=== PATIENT | female | born 1980 | race Native Hawaiian/Other Pacific Islander ===

== ENCOUNTER 2016-06-19 23:13 | Emergency (ER) | payer SELFPAY ==
[2016-06-19 23:26] VITALS: BP 121/80
[2016-06-19] MEDS ORDERED: TYLENOL ONE (23:31)
[2016-06-19] MEDS ORDERED: TYLENOL PO ONE (23:36)
[2016-06-20 00:28] LABS: Basophils % (Auto) 0.2 % (0.0-1.8); Hemoglobin 13.2 gm/dl (10.1-14.3); Mean Corpuscular HGB Conc 34 % (30-34); Mean Corpuscular Hemoglobin 30 pg (28-32); Mean Corpuscular Volume 88 fl (79-97); Platelet Count 393 K/mm3 (140-440); Red Blood Count 4.45 M/mm3 (3.65-5.03); Red Cell Distribution Width 12.8 % (13.2-15.2); White Blood Count 12.4 K/mm3 (4.5-11.0)
[2016-06-20 00:50] LABS: Alanine Aminotransferase 15 units/L (7-56); Alkaline Phosphatase 59 units/L (35-129); Bilirubin,Total 0.6 mg/dL (0.1-1.2); Blood Urea Nitrogen 11 mg/dL (7-17); Carbon Dioxide 21 mmol/L (22-30); Chloride 95.9 mmol/L (98-107); Glucose 149 mg/dL (65-100); Lipase 16 units/L (13-60); Potassium 3.6 mmol/L (3.6-5.0); Sodium 135 mmol/L (137-145); Total Protein 8.2 g/dL (6.3-8.2)
[2016-06-20 00:56] LABS: Anion Gap 22 mmol/L
[2016-06-20 01:08] LABS: Bacteria,Urine 1+ /HPF (Negative); Bilirubin,Urine NEG (Negative); Blood,Urine NEG (Negative); Ketones,Urine 20 mg/dL (Negative); Leukocyte Esterase,Urine LG (Negative); Mucus,Urine 3+ /HPF; Nitrite,Urine NEG (Negative)
--- NOTE | 2016-06-21 05:00 | ED Elopement Review ---
ED Pt Elopement review - Results review Lab results: Laboratory Tests 06/20/16 06/20/16 06/20/16 00:18 00:18 00:50 WBC 12.4 H RBC 4.45 Hgb 13.2 Hct 39.0 MCV 88 MCH 30 MCHC 34 RDW 12.8 L Plt Count 393 Lymph % (Auto) 10.0 L [place] % (Auto) 5.5 Eos % (Auto) 0.0 Baso % (Auto) 0.2 Lymph # 1.2 [place] # 0.7 Eos # 0.0 Baso # 0.0 Seg Neutrophils % 84.3 H Seg Neutrophils # 10.4 H Sodium 135 L Potassium 3.6 Chloride 95.9 L Carbon Dioxide 21 L Anion Gap 22 BUN 11 Creatinine 0.4 L Estimated GFR > 60 BUN/Creatinine Ratio 27.50 Glucose 149 H Calcium 9.0 Total Bilirubin 0.6 AST 13 ALT 15 Alkaline Phosphatase 59 Total Protein 8.2 Albumin 4.0 Albumin/Globulin Ratio 1.0 Lipase 16 Urine Color Yellow Urine Turbidity Slightly-cloudy Urine pH 6.0 Ur Specific [place] 1.028 Urine Protein 30 mg/dl Urine Glucose (UA) Neg Urine Ketones 20 Urine Blood Neg Urine Nitrite Neg Urine Bilirubin Neg Urine Urobilinogen 2.0 Ur Leukocyte Esterase Lg Urine WBC (Auto) 23.0 H Urine RBC (Auto) 10.0 U Epithel Cells (Auto) 5.0 Urine Bacteria (Auto) 1+ Urine Mucus 3+ Urine HCG, Qual Negative - Call Back decision Pt Call Back Decision: Pt to F/U with PMD (HR elevated, wbc in urine (need clean catch repeat), may return if sx worsen.)
== END 2016-06-20 07:35 | disposition left against medical advice (07) ==
LOC: ED 23:13
DX: R10.2 Pelvic and perineal pain (principal); Z53.21 Procedure and treatment not carried out due to patient leaving prior to being seen by health care provider
CPT/HCPCS: 36415; 80053; 81001; 81025; 83690; 85025